=== PATIENT | female | born 1970 | race Caucasian/White ===

== ENCOUNTER 2021-11-20 09:03 | Emergency (ER) | payer OTHER | END 2021-11-20 10:30 | disposition home or self-care (01) | LOC: LL.ED 09:03 | DX: S42.291A Other displaced fracture of upper end of right humerus, initial encounter for closed fracture (principal); S50.01XA Contusion of right elbow, initial encounter; Z88.1 Allergy status to other antibiotic agents; W01.0XXA Fall on same level from slipping, tripping and stumbling without subsequent striking against object, initial encounter | CPT/HCPCS: 73030-RT; 73060-RT; 99283 ==